=== PATIENT | female | born 1985 | race Caucasian/White ===

== ENCOUNTER 2016-09-06 17:54 | Emergency (ER) | payer OTHER ==
--- NOTE | 2016-09-06 18:45 | ER Document Report ---
ED Medical Screen (RME) - General Stated Complaint: FALL BACK PAIN Notes: 31 yo female, 19 weeks , c/o right ankle pain. chasing a child, tripped and fell forward. landed on stomach and ankle twisted. pain to right lateral malleolus. mild RLQ tenderness. no vaginal bleeding TRAVEL OUTSIDE OF THE [place] IN LAST 30 DAYS: No Physical Exam - Vital signs Vitals: Temp Pulse Resp BP Pulse Ox 98.3 F 85 18 124/74 96 09/06/16 18:15 09/06/16 18:15 09/06/16 18:15 09/06/16 18:15 09/06/16 18:15 Course - Vital Signs Vital signs: Temp Pulse Resp BP Pulse Ox 98.3 F 85 18 124/74 96 09/06/16 18:15 09/06/16 18:15 09/06/16 18:15 09/06/16 18:15 09/06/16 18:15
--- NOTE | 2016-09-06 19:49 | ER Document Report ---
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 She states she fell front forewards, but caught herself with her arms. She denies any abd pain at all, cramping, vaginal bleeding. TRAVEL OUTSIDE OF THE [place] IN LAST 30 DAYS: No - Related Data Allergies/Adverse Reactions: No Known Drug Allergies Allergy (Verified 09/06/16 18:43) Past Medical History - General Information source: Patient - Social History Smoking Status: Never Smoker Chew tobacco use (# tins/day): No Frequency of alcohol use: None Drug Abuse: None Family History: Reviewed & Not Pertinent Patient has suicidal ideation: No Patient has homicidal ideation: No Renal/ Medical History: Denies: Hx Peritoneal Dialysis Review of Systems - Review of Systems Constitutional: No symptoms reported EENT: No symptoms reported Cardiovascular: No symptoms reported Respiratory: No symptoms reported Gastrointestinal: No symptoms reported Genitourinary: No symptoms reported Female Genitourinary: See HPI Musculoskeletal: No symptoms reported Skin: No symptoms reported Hematologic/Lymphatic: No symptoms reported Neurological/Psychological: No symptoms reported Physical Exam - Vital signs Vitals: Temp Pulse Resp BP Pulse Ox 98.3 F 85 18 124/74 96 09/06/16 18:15 09/06/16 18:15 09/06/16 18:15 09/06/16 18:15 09/06/16 18:15 - Notes Notes: PHYSICAL EXAMINATION: GENERAL: Well-appearing and in no acute distress. HEAD: Atraumatic, normocephalic. EYES: Pupils equal round and reactive to light, extraocular movements intact, sclera anicteric, conjunctiva are normal. NECK: Normal range of motion, supple without lymphadenopathy LUNGS: CTAB and equal. No wheezes rales or rhonchi. HEART: Regular rate and rhythm without murmurs ABDOMEN: Soft, no tenderness. No guarding, no rebound BACK: no vertebral tenderness, normal ROM GI/: no CVA tenderness NEUROLOGICAL: Cranial nerves grossly intact. Normal sensory/motor exams. PSYCH: Normal mood, normal affect. SKIN/EXTREMITIES: Normal range of motion but with pain with rotation of ankle and inversion of right ankle, no pitting edema. No cyanosis. Warm, Dry, normal turgor, edema noted to right lateral malleolus, tender to palpation over this area only Course - Re-evaluation Re-evalutation: 09/06/16 19:48 heart tones were 140bpm. Pt has no tenderness to exam. She has an appt tomorrow with her obgyn and they told her they would monitor baby because of this incident. x rays of ankle and foot negative for any pathology. Pt placed in tremayne wrap and given tylenol for pain. - Vital Signs Vital signs: Temp Pulse Resp BP Pulse Ox 97.9 F 90 14 113/73 96 09/06/16 20:11 09/06/16 20:11 09/06/16 20:11 09/06/16 20:11 09/06/16 20:11 Discharge - Discharge Clinical Impression: Right ankle sprain Qualifiers: Encounter type: initial encounter Involved ligament of ankle: unspecified ligament Qualified Code(s): S93.401A - Sprain of unspecified ligament of right ankle, initial encounter Condition: Stable Disposition: HOME, SELF-CARE Instructions: Ice & Elevation ([facility]), Ice Packs ([facility]), Tremayne Wrap ([facility]), Sprained Ankle ([facility]) Additional Instructions: Return immediately for any new or worsening symptoms. Follow up with primary care provider, call tomorrow to make followup appointment. Referrals: PIA TUBBS MD [Primary Care Provider] - Follow up as needed
[2016-09-06] MEDS ORDERED: ACETAMINOPHEN 325 MG TABLET PO ONE (19:57)
[2016-09-06 20:45] VITALS: BP 113/73
== END 2016-09-06 20:11 | disposition home or self-care (01) ==
LOC: ER 17:54
DX: O9A.212 Injury, poisoning and certain other consequences of external causes complicating pregnancy, second trimester (principal); S93.401A Sprain of unspecified ligament of right ankle, initial encounter; W19.XXXA Unspecified fall, initial encounter; Y93.89 Activity, other specified; Y92.219 Unspecified school as the place of occurrence of the external cause; Y99.0 Civilian activity done for income or pay; Z3A.19 19 weeks gestation of pregnancy
CPT/HCPCS: 99283

== ENCOUNTER → 2016-09-06 | Outpatient (CLI) | payer OTHER | LOC: RAD 17:20 | PROVIDERS: ATTEND Physician Assistant | DX: O99.89 Other specified diseases and conditions complicating pregnancy, childbirth and the puerperium (principal); M25.571 Pain in right ankle and joints of right foot; M79.89 Other specified soft tissue disorders ==